=== PATIENT | male | born 1965 | race Caucasian/White ===

== ENCOUNTER 2017-11-01 06:03 | Day surgery (SDC) | payer BC ==
[2017-11-01] MEDS ORDERED: Ketamine HCl 50 MG/ML IJ ONE (06:04)
[2017-11-01] MEDS ORDERED: DIPRIVAN 200 MG/20 ML IV ONE (06:04)
[2017-11-01] MEDS ORDERED: Lactated Ringers 1,000 ML IV SCH (06:30)
[2017-11-01 06:41] VITALS: O2SAT 100
[2017-11-01 08:53] VITALS: BP 118/85; PULSE 58
--- NOTE | 2017-11-01 10:09 | OP ---
SURGERY DATE/TIME: 11/01/2017719 PREOPERATIVE DIAGNOSIS: Weight loss of 30 pounds. POSTOPERATIVE DIAGNOSES: 1) Duodenal ulcers. 2) Rectosigmoid colitis. PROCEDURES: 1) EGD with biopsy. 2) Colonoscopy with biopsy. SURGEON: Dr. Tello. ANESTHESIA: MAC. Medications given by anesthesia department. HISTORY: The patient is a 52 year-old white male patient presenting now for complaints of significant 30 pound or more weight loss over the past six weeks. The patient incidentally weighs approximately 135 pounds presently. The patient was felt to need to have endoscopic evaluation. He was appraised of the risks of the procedure including the risk of perforation, phlebitis, untoward reaction to medication, bleeding and missed lesions. The patient verbalized his understanding and desired to have the procedure performed. DESCRIPTION OF PROCEDURE: The patient was given the medications by the anesthesia department. He had continuous pulse oximetry, ECG monitoring, intermittent blood pressure monitoring and tidal CO2 monitoring during the examination. He was placed in the left lateral decubitus position. A bite block was placed and the flexible Olympus gastroscope was used to intubate the oropharynx. A view of the larynx was obtained and this was normal. The scope was easily introduced in the esophagus which was normal throughout its length. The stomach was entered where normal gastric rugal folds were seen and these distended nicely with insufflation of air. The scope was passed along the greater curvature of the stomach to the antrum which appeared to be somewhat deformed. The pylorus was encountered and intubated. In the first portion of the duodenum there appeared to be a 1.5 cm ulcer with clean ulcer base and no evidence of active bleeding. As the scope was passed along the duodenum there were multiple areas of erosions noted. Again, no active bleeding. The scope is withdrawn towards the stomach. A retroflex view was obtained of the lesser curvature, fundus and cardia regions of the stomach and these appeared normal. The scope was then redirected towards the gastric antrum and biopsies were obtained to rule out the presence of Helicobacter pylori-type organisms. The scope was then removed from the patient. Next, a digital rectal examination was performed and revealed normal anal sphincter tone and no masses and normal prostate. The flexible Olympus pediatric colonoscope was used to intubate the rectum. A view of the colon was developed sequentially to the cecum including a short distance into the terminal ileum. Upon insertion and withdrawal, there was noted to be a speckled pattern in the rectosigmoid area and this was biopsied using cold biopsy technique. No other mucosal lesions being encountered the scope was then removed from the patient who tolerated the procedure well and was sent back to OP recovery in good condition. The prep was noted to be fair to good. There was some solid stool still in the right side of the colon. Otherwise we were able to see the colon nicely.
== END 2017-11-01 09:10 | disposition home or self-care (01) ==
LOC: SDC 06:03
PROVIDERS: ATTEND Family Medicine
PROC: 0DB78ZX Excision of Stomach, Pylorus, Via Natural or Artificial Opening Endoscopic, Diagnostic (ICD-10-PCS; principal; 2017-11-01)
PROC: 0DBN8ZX Excision of Sigmoid Colon, Via Natural or Artificial Opening Endoscopic, Diagnostic (ICD-10-PCS; 2017-11-01)
DX: K26.9 Duodenal ulcer, unspecified as acute or chronic, without hemorrhage or perforation (principal); K52.9 Noninfective gastroenteritis and colitis, unspecified; R63.4 Abnormal weight loss; Z68.30 Body mass index [BMI] 30.0-30.9, adult
CPT/HCPCS: 00812; 82272; 88305; J2704